=== PATIENT | male | born 1990 | race Hispanic/Latino ===

== ENCOUNTER 2017-08-16 12:12 | Outpatient (CLI) | payer OTHER | END 2017-08-16 12:13 | disposition home or self-care (01) | LOC: LAB 12:12 | PROVIDERS: ATTEND Psychiatry & Neurology Psychiatry | DX: A53.9 Syphilis, unspecified (principal) | CPT/HCPCS: 36415; 86592 ==

== ENCOUNTER 2021-04-06 05:02 | Emergency (ER) | payer OTHER ==
[2021-04-06 05:14] VITALS: BP 122/86
[2021-04-06 05:51] LABS: Hematocrit 48.3 % (35.5-45.6); Hemoglobin 15.4 gm/dl (11.8-15.2); Mean Corpuscular HGB Conc 32 % (32-34); Mean Corpuscular Volume 84 fl (84-94); Platelet Count 309 K/mm3 (140-440); Red Blood Count 5.73 M/mm3 (3.65-5.03); Red Cell Distribution Width 14.8 % (13.2-15.2)
[2021-04-06 06:05] LABS: Alanine Aminotransferase 29 units/L (7-56); Albumin 4.1 g/dL (3.9-5); BUN/Creatinine Ratio 11; Blood Urea Nitrogen 11 mg/dL (9-20); Calcium 9.2 mg/dL (8.4-10.2); Hemolysis Index 14
[2021-04-06 07:12] LABS: Band Neutrophils # (Manual) 0.2 K/mm3; RBC Morphology Normal; Total Cells Counted 100
[2021-04-06 07:13] LABS: Platelet Estimate Consistent w Auto
--- NOTE | 2021-04-06 07:55 | Emergency Department Report ---
ED Syncope HPI - General Chief Complaint: Dizziness Stated Complaint: FELL HIT HEAD Time Seen by Provider: 04/06/21 07:26 Source: patient, RN notes reviewed Exam Limitations: no limitations - History of Present Illness Initial Comments: This is a 31-year-old male nontoxic, well nourished in appearance, no acute signs of distress presents to the ED with c/o of dizziness with syncope episodes going on for the past 3 weeks. Patient currently stated has no symptoms of any pain or any complaints. Patient stated is in [place] and was brought to the ER for further relation treatment. Patient currently denies any symptoms or complaints. Stated symptoms are aggravated when coughing. Patient stated this morning became dizzy and had a syncopal episode hit his head against the dresser. Patient denies any headache. Patient denies any neck or back pain. Patient stated the dizziness is worsened with position change. Patient denies any numbness, tingling, headache, stiff neck, chest pain, shortness of breathe, numbness or tingling. Denies any visual changes or blurry vision. Denies any drug allergies. Timing/Prior Episodes: no prior history Precipitating Factors: Positive: none Context: standing, coughing Loss of Consciousness: brief (seconds) Current Symptoms: back to normal. denies: blurred vision, chest pain, diaphoresis, dizziness, headache, injury, lightheadedness, loss of bladder control, loss of bowel control, motionless, nausea, pale, shallow/rapid breathing, weak/absent pulse, weakness - Related Data Allergies/Adverse Reactions: Allergies No Known Allergies Allergy (Verified 05/23/13 02:11) Home Medications: Ambulatory Orders ARIPiprazole [Abilify] 5 mg PO QHS 05/22/13 Albuterol Sulfate [Accuneb] 1.25 mg IH TID PRN 05/22/13 Escitalopram Oxalate [Lexapro] 10 mg PO QDAY 05/22/13 Escitalopram Oxalate [Lexapro] 20 mg PO QHS 05/22/13 HYDROcodone/ACETAMINOPHEN [Hydrocodon-Acetaminophen 5-300 mg] 1 tab PO Q6H PRN 05/22/13 LORazepam [Ativan] 0.5 mg PO BID PRN 05/22/13 hydrOXYzine HCL [Atarax] 25 mg PO BID 05/22/13 traZODone [Desyrel] 50 mg PO QHS 05/22/13 ED Review of Systems ROS: Stated complaint: FELL HIT HEAD Other details as noted in HPI Comment: All other systems reviewed and negative Constitutional: denies: chills, fever Eyes: denies: eye pain, eye discharge, vision change ENT: denies: ear pain, throat pain Respiratory: denies: cough, shortness of breath, wheezing Cardiovascular: denies: chest pain, palpitations Endocrine: no symptoms reported Gastrointestinal: denies: abdominal pain, nausea, diarrhea Genitourinary: denies: urgency, dysuria Musculoskeletal: denies: back pain, joint swelling, arthralgia Skin: denies: rash, lesions Neurological: as per HPI. denies: headache, weakness, numbness, paresthesias, confusion, abnormal gait, vertigo Psychiatric: denies: anxiety, depression Hematological/Lymphatic: denies: easy bleeding, easy bruising ED Past Medical Hx - Past Medical History Previous Medical History?: Yes Hx Psychiatric Treatment: Yes - Social History Smoking Status: Never Smoker Substance Use Type: None - Medications Home Medications: Home Medications Medication Instructions Recorded Confirmed Last Taken Type ARIPiprazole [Abilify] 5 mg PO QHS 05/22/13 05/22/13 05/22/13 History Albuterol Sulfate [Accuneb] 1.25 mg IH TID PRN 05/22/13 05/22/13 Unknown History Escitalopram Oxalate [Lexapro] 10 mg PO QDAY 05/22/13 05/22/13 05/22/13 History Escitalopram Oxalate [Lexapro] 20 mg PO QHS 05/22/13 05/22/13 05/21/13 History HYDROcodone/ACETAMINOPHEN 1 tab PO Q6H PRN 05/22/13 05/22/13 05/22/13 History [Hydrocodon-Acetaminophen 5-300 mg] LORazepam [Ativan] 0.5 mg PO BID PRN 05/22/13 05/22/13 05/22/13 History hydrOXYzine HCL [Atarax] 25 mg PO BID 05/22/13 05/22/13 05/22/13 History traZODone [Desyrel] 50 mg PO QHS 05/22/13 05/22/13 05/22/13 History ED Physical Exam - General Limitations: No Limitations General appearance: alert, in no apparent distress - Head Head exam: Present: normocephalic - Expanded Head Exam Expanded Head exam: Present: hematoma 1 - Hematoma present here - Eye Eye exam: Present: normal appearance, PERRL, EOMI - ENT ENT exam: Present: normal exam, normal orophraynx - Neck Neck exam: Present: normal inspection, full ROM. Absent: tenderness, meningismus, lymphadenopathy - Respiratory Respiratory exam: Present: normal lung sounds bilaterally. Absent: respiratory distress, wheezes, rales, rhonchi, stridor, chest wall tenderness, accessory muscle use, decreased breath sounds, prolonged expiratory - Cardiovascular Cardiovascular Exam: Present: regular rate, normal rhythm, normal heart sounds. Absent: bradycardia, tachycardia, irregular rhythm, systolic murmur, diastolic murmur, rubs, gallop - GI/Abdominal GI/Abdominal exam: Present: soft. Absent: distended, tenderness - Extremities Exam Extremities exam: Present: normal inspection, full ROM, normal capillary refill. Absent: tenderness - Back Exam Back exam: Present: normal inspection, full ROM. Absent: tenderness, CVA tenderness (R), CVA tenderness (L), muscle spasm, paraspinal tenderness, vertebral tenderness, rash noted - Neurological Exam Neurological exam: Present: alert, oriented X3, normal gait - Expanded Neurological Exam Expanded Patient oriented to: Present: person, place, time Cranial nerves: EOM's Intact: Normal, Facial Sensation: Normal Cerebellar function: Finger to Nose: Normal Upper motor neuron: Pronator Drift: Normal, Sensory Extinction: Normal Motor strength exam: RUE: 5, LUE: 5, RLE: 5, LLE: 5 Best Eye Response (Mirza): (4) open spontaneously Best Motor Response (Mirza): (6) obeys commands Best Verbal Response ([place]): (5) oriented Mirza Total: 15 - Psychiatric Psychiatric exam: Present: normal affect, normal mood - Skin Skin exam: Present: warm, dry, intact, normal color. Absent: rash ED Course Vital Signs 04/06/21 05:07 Temperature 98.0 F Pulse Rate 61 Respiratory 20 Rate Blood Pressure 122/86 [Right] O2 Sat by Pulse 97 Oximetry - Reevaluation(s) Reevaluation #1: 04/06/21 07:58 Patient is speaking in full sentences with no signs of distress noted. ED Medical Decision Making - Lab Data Result diagrams: 04/06/21 05:19 04/06/21 05:19 Lab Results 04/06/21 04/06/21 Range/Units 05:19 05:19 WBC 8.0 (4.5-11.0) K/mm3 RBC 5.73 H (3.65-5.03) M/mm3 Hgb 15.4 H (11.8-15.2) gm/dl Hct 48.3 H (35.5-45.6) % MCV 84 (84-94) fl MCH 27 L (28-32) pg MCHC 32 (32-34) % RDW 14.8 (13.2-15.2) % Plt Count 309 (140-440) K/mm3 [place] % (Auto) Ammonium Nitrate Crystallizer Add Manual Diff Complete Total Counted 100 Seg Neuts % (Manual) 59.0 (40.0-70.0) % Band Neutrophils % 2.0 % Lymphocytes % (Manual) 24.0 (13.4-35.0) % Monocytes % (Manual) 12.0 H (0.0-7.3) % Eosinophils % (Manual) 2.0 (0.0-4.3) % Basophils % (Manual) 1.0 (0.0-1.8) % Nucleated RBC % Not Reportable Seg Neutrophils # Man 4.7 (1.8-7.7) K/mm3 Band Neutrophils # 0.2 K/mm3 Lymphocytes # (Manual) 1.9 (1.2-5.4) K/mm3 Abs React Lymphs (Man) 0.0 K/mm3 Monocytes # (Manual) 1.0 H (0.0-0.8) K/mm3 Eosinophils # (Manual) 0.2 (0.0-0.4) K/mm3 Basophils # (Manual) 0.1 (0.0-0.1) K/mm3 Metamyelocytes # 0.0 K/mm3 Myelocytes # 0.0 K/mm3 Promyelocytes # 0.0 K/mm3 Blast Cells # 0.0 K/mm3 WBC Morphology Not Reportable Hypersegmented Neuts Not Reportable Hyposegmented Neuts Not Reportable Hypogranular Neuts Not Reportable Smudge Cells Not Reportable Toxic Granulation Not Reportable Toxic Vacuolation Not Reportable Dohle Bodies Not Reportable Pelger-Huet Anomaly Not Reportable Abelardo Rods Not Reportable Platelet Estimate Consistent w auto Clumped Platelets Not Reportable Plt Clumps, EDTA Not Reportable Large Platelets Not Reportable Giant Platelets Not Reportable Platelet Satelliting Not Reportable Plt Morphology Comment Not Reportable RBC Morphology Normal Dimorphic RBCs Not Reportable Polychromasia Not Reportable Hypochromasia Not Reportable Poikilocytosis Not Reportable Anisocytosis Not Reportable Microcytosis Not Reportable Macrocytosis Not Reportable Spherocytes Not Reportable Pappenheimer Bodies Not Reportable Sickle Cells Not Reportable Target Cells Not Reportable Tear Drop Cells Not Reportable Ovalocytes Not Reportable Helmet Cells Not Reportable [place] Bodies Not Reportable [place] Rings Not Reportable [place] Cells Not Reportable Bite Cells Not Reportable Crenated Cell Not Reportable Elliptocytes Not Reportable Acanthocytes (Sp[place]) Not Reportable Rouleaux Not Reportable Hemoglobin C Crystals Not Reportable Schistocytes Not Reportable Malaria parasites Not Reportable Ariel Bodies Not Reportable Hem Pathologist Commnt No Sodium 139 (137-145) mmol/L Potassium 4.1 (3.6-5.0) mmol/L Chloride 102.9 (98-107) mmol/L Carbon Dioxide 24 (22-30) mmol/L Anion Gap 16 mmol/L BUN 11 (9-20) mg/dL Creatinine 1.0 (0.8-1.3) mg/dL Estimated GFR > 60 ml/min BUN/Creatinine Ratio 11 % Glucose 98 (75-100) mg/dL Calcium 9.2 (8.4-10.2) mg/dL Total Bilirubin 0.20 (0.1-1.2) mg/dL AST 24 (5-40) units/L ALT 29 (7-56) units/L Alkaline Phosphatase 125 (35-129) units/L Total Protein 7.3 (6.3-8.2) g/dL Albumin 4.1 (3.9-5) g/dL Albumin/Globulin Ratio 1.3 % - Medical Decision Making 31-year-old male that presents with syncope. Patient is stable and was examined by me. Labs have some been obtained. EKG ordered and CT of head/neck has been ordered for patient stated at this time he needs to leave. Patient was instructed of my concerns and further evaluation and treatment. Patient refused and sign against medical advise. Patient educated of consequences such as chronic disability and or can occur but patient still refused. Patient was instructed to follow-up with a primary care doctor as soon as possible or if symptoms worsen and continue return to emergency room as soon as possible. At time of signing AMA, the patient does not seem toxic or ill in appearance. No acute signs of distress noted. No further questions noted by the patient. Critical care attestation.: If time is entered above; I have spent that time in minutes in the direct care of this critically ill patient, excluding procedure time. ED Disposition Clinical Impression: Dizziness Syncope Qualifiers: Syncope type: unspecified Qualified Code(s): R55 - Syncope and collapse Disposition: 07 LEFT AGAINST MEDICAL ADVICE Is pt being admited?: No Does the pt Need Aspirin: No Condition: Undetermined Instructions: Syncope (ED) Additional Instructions: Follow-up with a primary care doctor as soon as possible or if symptoms worsen and continue return to emergency room as soon as possible. Your condition may be serious as instructed and educated today in the ER but you decided to leave AGAINST MEDICAL ADVICE. It is highly recommended to see a pr ovider as soon as possible to rule out serious complications that was described to you during your ED stay. Referrals: PRIMARY [facility] [Referring] - RUBEN ESCALONA MD [Staff Physician] - THALIA Forms: AMA Form Time of Disposition: 08:01
== END 2021-04-06 07:53 | disposition left against medical advice (07) ==
LOC: ED 05:02
DX: R42 Dizziness and giddiness (principal); R55 Syncope and collapse; Z86.59 Personal history of other mental and behavioral disorders
CPT/HCPCS: 36415; 80053; 85007; 85025; 99283